=== PATIENT | male | born 1950 | race Caucasian/White ===

== ENCOUNTER 2017-11-05 10:12 | Outpatient (CLI) | payer MEDICARE ==
--- NOTE | 2017-11-05 12:48 | MRI ---
MRI LEFT KNEE: DATE: 11/05/17. PROVIDED CLINICAL HISTORY: Left knee pain without injury. FINDINGS: Anterior cruciate ligament, posterior cruciate ligament, medial collateral ligament and lateral colla teral ligamentous complex demonstrate an intact MR appearance, as does the extensor mechanism. Mild increased signal and fluid sensitive sequences involving the proximal patellar tendon. Mild edema is present within the suprapatellar fat. There is complex grade III signal present involving the posterior horn-body junction of the medial me niscus with adjacent parameniscal cyst formation. There is also a small intraarticular body at the p eriphery of the posterior horn of the medial meniscus medially. The lateral meniscus demonstrates no evidence for discrete tear, with minimal irregularity to the free edge of the posterior horn. There is articular cartilage irregularity involving the central weightbearing portions of the medial femorotibial joint. No focal articular cartilage defect is apparent. The amount of fluid within the knee joint appears physiologic. There is fluid signal intensity about the MCL. There is somewhat circumscribed fluid signal intensity present superficial to the proximal patella. Increased signal intensity on fluid sensitive sequences involving the patella is likely on the basis of proximity to the coil. No focal concerning regional marrow or muscular signal abnormali ty is evident. IMPRESSION: 1. Complex nondisplaced tear involving the body-posterior horn junction of medial meniscus. Adjacen t parameniscal cyst formation and small adjacent intraarticular body. 2. Patellar tendinitis. 3. Edema of the suprapatellar fat, which can be associated with anterior knee pain. 4. Mild superficial prepatellar bursitis. 5. Fluid signal intensity about the medial collateral ligament, which appears intact. Please correl ate for low-grade injury. POS: TEE
== END 2017-11-05 10:13 | disposition home or self-care (01) ==
LOC: SCSMRI 10:12
PROVIDERS: ATTEND Orthopaedic Surgery
DX: S83.207A Unspecified tear of unspecified meniscus, current injury, left knee, initial encounter (principal); M76.52 Patellar tendinitis, left knee; R60.9 Edema, unspecified; M70.42 Prepatellar bursitis, left knee; S83.242A Other tear of medial meniscus, current injury, left knee, initial encounter

== ENCOUNTER 2017-11-12 15:59 | Outpatient (CLI) | payer MEDICARE ==
[2017-11-12 16:49] LABS: #Eosinphils 0.1 thou/uL (0.0-0.7); #Lymphocytes 1.4 thou/uL (1.20-3.40); #Monocytes 0.5 thou/uL (0.11-0.59); #Neutrophils 4.9 thou/uL (1.40-6.50); %Basophils 0.2 % (0.0-1.0); %Eosinophils 1.9 % (0.0-10.0); %Lymphocytes 19.7 % (21.0-51.0); %Monocytes 6.7 % (0.0-10.0); %Neutrophils 71.4 % (42.0-75.0); Hemoglobin 13.5 g/dL (14.0-18.0); Mean Corpuscular HGB CONC 32.7 g/dL (32.0-36.0); Mean Corpuscular Hemoglobin 31.2 pg (27.0-31.0); Mean Corpuscular Volume 95.3 fl (80.0-94.0); Mean Platelet Volume 7.1 fL (7.4-10.4); Platelet Count 180 thou/uL (130-400); RBC Distribution Width 12.4 % (11.5-14.5); Red Blood Cell (RBC) Count 4.33 mill/uL (4.70-6.10); White Blood Cell (WBC) Count 6.8 thou/uL (4.8-10.8)
[2017-11-12 17:08] LABS: Anion Gap 10 mmol/L (10-20); BUN (Urea Nitrogen) 22 mg/dL (8.4-25.7); Calc. Creatinine Clearance 0 mL/min (70-130); Calcium 9.5 mg/dL (7.8-10.44); Carbon Dioxide 26 mmol/L (23-31); Chloride 103 mmol/L (98-107); Estimated GFR-MDRD 53; Glucose 89 mg/dL (80-115); Potassium 4.5 mmol/L (3.5-5.1); Sodium 134 mmol/L (136-145)
--- NOTE | 2017-11-28 22:34 | EKG ---
Test Reason : Blood Pressure : / mmHG Vent. Rate : 059 BPM Atrial Rate : 059 BPM P-R Int : 162 ms QRS Dur : 154 ms QT Int : 474 ms P-R-T Axes : 033 027 237 degrees QTc Int : 469 ms Sinus bradycardia Left bundle branch block Abnormal ECG When compared with ECG of 30-JUN-2010 17:44, No significant change was found Confirmed by Armen RODRIGUEZ ([id number]) on 11/28/2017 10:33:37 PM Referred By: IERO Confirmed By:Armen RODRIGUEZ
== END 2017-11-12 16:00 | disposition home or self-care (01) ==
LOC: LABBT 15:59
PROVIDERS: ATTEND Orthopaedic Surgery
DX: Z01.818 Encounter for other preprocedural examination (principal); S83.207A Unspecified tear of unspecified meniscus, current injury, left knee, initial encounter
CPT/HCPCS: 80048; 85025; 93005; 93010

== ENCOUNTER 2017-11-14 06:52 | Day surgery (SDC) | payer MEDICARE ==
[2017-11-12 16:32] VITALS: BMI 28.8
[2017-11-14] MEDS ORDERED: CEFAZOLIN/Water 2 GM/20 ML SYRINGE ONE (07:49)
[2017-11-14] MEDS ORDERED: Diprivan 20 ML ONE (08:08)
[2017-11-14] MEDS ORDERED: Propofol 500 MG/50 ML VIAL ONE (08:08)
[2017-11-14] MEDS ORDERED: Fentanyl 100 MCG/2 ML VIAL ONE (08:39)
--- NOTE | 2017-11-14 10:09 | OP ---
DATE OF PROCEDURE: 11/14/2017 PREOPERATIVE DIAGNOSIS: Left knee medial meniscus tear. POSTOPERATIVE DIAGNOSIS: Left knee medial and lateral meniscal tears. SURGERY: Left knee arthroscopy, partial medial and lateral meniscectomies. SURGEON: Kushal Mari M.D. LAW SECRETARY: None. BLOOD LOSS: Minimal. COMPLICATIONS: None. He went to the recovery room in stable condition. He did have general anesthe tic as well as a local knee block. INDICATIONS: A 67-year-old male, who comes in complaining of pain, swelling, and catching in his kne e. At this time, he failed nonoperative treatment. He is now taken to the operating room for partia l meniscectomy and other indicated procedures. OPERATIVE PROCEDURE: After all appropriate consent forms were explained and signed, he was taken judith k to the operating room and at this time was given general anesthetic. Tourniquet was placed on his left thigh and the leg was then placed on arthroscopic leg perry. It was then prepped and draped in the standard surgical fashion. The limb was exsanguinated and the tourniquet was taken up to 300 mm Hg. An inferolateral portal was established and the scope was placed into the knee joint. ACL and P CL were probed and found to be intact in the notch. The medial compartment showed a large area of th e medial femoral condyle to have a grade 3 lesion nearing a grade 4. Unstable chondral flaps around the periphery were taken down. There was a large flap tear of the anterior horn of the medial menisc us. This was taken down with the shaver to a stable base. Remaining medial meniscus was found to babb ve a tear in the body as well as a posterior horn. A partial meniscectomy was performed using menisc al biter and shaver to rid the knee of any unstable flaps. At this time, attention was turned to the lateral compartment. There was a small tear in the posterior horn near the root of the lateral meni scus and a partial meniscectomy was performed using meniscal biter and shaver. Overall, the cartilag e in the lateral side of the knee was in pretty good condition. Gutters swept through and no loose b odies were noted. Patellofemoral joint was also evaluated and found to be in good condition. At thi s time, the scope was removed, knee was drained, and the portals were closed with a simple nylon stit ch. Bulky sterile dressing was applied. Tourniquet was let down. Toes pinked up nicely. The patie nt was awakened and taken to the recovery room in stable condition. All counts were correct at the e nd of the case and he did receive preoperative IV antibiotics.
[2017-11-14] MEDS ORDERED: Bupivacaine HCl 0.5%/Epinephrine 1:200,000/PF 30 ml Vial ONE (11:13)
[2017-11-14] MEDS ORDERED: Lidocaine 2% w/Epinephrine 1:200K 20 ML VIAL ONE (11:13)
== END 2017-11-14 11:40 | disposition home or self-care (01) ==
LOC: SDC 06:52
PROVIDERS: ATTEND Orthopaedic Surgery
PROC: 0SBD4ZZ Excision of Left Knee Joint, Percutaneous Endoscopic Approach (ICD-10-PCS; principal; 2017-11-14)
PROC: 0SBD4ZZ Excision of Left Knee Joint, Percutaneous Endoscopic Approach (ICD-10-PCS; 2017-11-14)
DX: S83.282A Other tear of lateral meniscus, current injury, left knee, initial encounter (principal); S83.242A Other tear of medial meniscus, current injury, left knee, initial encounter; E78.5 Hyperlipidemia, unspecified; I10 Essential (primary) hypertension; Z79.899 Other long term (current) drug therapy; Z98.890 Other specified postprocedural states
CPT/HCPCS: 29880; 97139; G8978; G8979; G8980; J2704; J3010

== ENCOUNTER 2017-11-26 15:12 | Outpatient (CLI) | payer MEDICARE ==
--- NOTE | 2017-11-26 16:56 | ULT ---
DOPPLER VENOUS ULTRASOUND OF THE LEFT LOWER EXTREMITY: INDICATIONS: Left calf pain after a knee scope. TECHNIQUE: Menendez-scale, color Doppler, and vascular duplex with spectral analysis was performed of the deep venou s structures of both lower extremities. The common femoral vein, superficial femoral vein, popliteal vein, posterior tibial vein, proximal greater saphenous, and proximal profunda veins were assessed bi laterally. FINDINGS: There is occlusive thrombus within a duplicated left posterior tibial vein. The remaining visualized deep venous segments of the left lower extremity were within normal limits. IMPRESSION: Findings of occlusive thrombus seen within the left posterior tibial vein. Findings were called to Dr. Mari at 4:15 p.m. on 11/26/2017. CODE CR POS: LATOSHA
== END 2017-11-26 15:13 | disposition home or self-care (01) ==
LOC: SCSULT 15:12
PROVIDERS: ATTEND Orthopaedic Surgery
DX: M79.662 Pain in left lower leg (principal); I82.442 Acute embolism and thrombosis of left tibial vein; Z98.890 Other specified postprocedural states